=== PATIENT | male | born 1970 | race Two or more races ===

== ENCOUNTER 2022-11-19 16:04 | Emergency (ER) | payer OTHER, MEDICAID ==
[~2022-11-19] VITALS: Ht 175.3 cm; Wt 99.0 kg
[2022-11-19] MEDS ORDERED: DICL-163 PO (17:09)
[2022-11-19] MEDS ORDERED: KETOROLAC TROMETH 30 MG/ML 1ML VIAL IM ONE (17:15)
[2022-11-19 17:29] VITALS: BP 132/65
== END 2022-11-19 17:37 | disposition home or self-care (01) ==
LOC: ER 16:04
DX: S90.31XA Contusion of right foot, initial encounter (principal); W01.0XXA Fall on same level from slipping, tripping and stumbling without subsequent striking against object, initial encounter; Y93.89 Activity, other specified; Y92.89 Other specified places as the place of occurrence of the external cause; Y99.8 Other external cause status
CPT/HCPCS: 73630; 96372; 99283; J1885